=== PATIENT | female | born 1940 ===

== ENCOUNTER 2021-03-22 15:39 | Outpatient (CLI) | payer OTHER | END 2021-03-22 23:59 | disposition home or self-care (01) | LOC: RAD 15:39 | PROVIDERS: ATTEND Otolaryngology | DX: J38.01 Paralysis of vocal cords and larynx, unilateral (principal); R13.14 Dysphagia, pharyngoesophageal phase; R49.0 Dysphonia | CPT/HCPCS: 74230 ==

== ENCOUNTER 2021-11-22 16:30 | Emergency (ER) | payer OTHER ==
[~2021-11-22] VITALS: Ht 157.5 cm; Wt 68.2 kg
[2021-11-22] MEDS ORDERED: TRAM50TA2 PO (17:14)
[2021-11-22] MEDS ORDERED: traMADol 50MG tablet PO ONE (17:25)
[2021-11-22 18:39] VITALS: BP 178/89
== END 2021-11-22 18:45 | disposition home or self-care (01) ==
LOC: ER 16:31
DX: M66.0 Rupture of popliteal cyst (principal); M17.11 Unilateral primary osteoarthritis, right knee; M79.604 Pain in right leg; I10 Essential (primary) hypertension; Z98.890 Other specified postprocedural states; Z88.1 Allergy status to other antibiotic agents; Z88.8 Allergy status to other drugs, medicaments and biological substances
CPT/HCPCS: 73560; 93971; 99284